=== PATIENT | male | born 1990 | race Caucasian/White ===

== ENCOUNTER 2017-01-03 06:01 | Emergency (ER) | payer SELFPAY | END 2017-01-03 07:14 | disposition home or self-care (01) | LOC: FER 06:01 | DX: S93.492A Sprain of other ligament of left ankle, initial encounter (principal); X50.1XXA Overexertion from prolonged static or awkward postures, initial encounter; Y99.0 Civilian activity done for income or pay | CPT/HCPCS: 73610; 99283 ==